=== PATIENT | female | born 1960 | race Caucasian/White ===

== ENCOUNTER → 2017-05-09 15:55 | Outpatient (CLI) | payer MEDICAID ==
[2015-06-29 12:20] VITALS: BMI 44.3
[~2017-05-09 15:55] MED LIST: ALIGN4 MG PO; BAYER CHEWABLE81 MG PO; COLACE100 MG PO; COUMADIN5 MG PO; FISH OIL 1,0001 CA1; FLEXERIL10 MG PO; FLUTICASONE PRO16 GM NASAL; GLUCOPHAGE500 MG PO; NEXIUM40 MG PO; PEPCID20 MG PO; PERCOCET 10/3251 TA1 PO; PHENERGAN25 MG RC; PRINZIDE 20/12.1 TAB PO; PROTONIX20 MG PO; XANAX0.5 MG PO; ZOFRAN ODT4 MG/UDTAB PO
== END | disposition home or self-care (01) ==
LOC: D.MAMMO 13:00
DX: Z12.31 Encounter for screening mammogram for malignant neoplasm of breast (principal)

== ENCOUNTER 2017-06-24 08:41 | Emergency (ER) | payer MEDICAID ==
[2015-06-29 12:20] VITALS: BMI 44.3
[2017-06-24 09:30] LABS: BASOPHILS 0.5 % (0-2); EOSINOPHILS 2.3 % (0-7); HEMATOCRIT 39.5 % (36.0-48.0); HEMOGLOBIN 13.2 g/dL (12-16); IMMATURE GRANULOCYTES 0.2 % (0-5); LYMPHOCYTES 17.8 % (15-50); MCH 29.6 pg (26.0-34.0); MCHC 33.4 g/dL (31.0-37.0); MCV 88.6 fL (80.0-100.0); MEAN PLATELET VOLUME 10.3 fL (7.4-10.4); MONOCYTES 10.6 % (2-11); NEUTROPHILS 68.6 % (40-80); PLATELET COUNT 228 10x3/uL (130-400); RBC 4.46 10x6/uL (4.00-5.40); WBC 6.6 10x3/uL (4.8-10.8)
== END 2017-06-24 09:53 | disposition home or self-care (01) ==
LOC: D.ER 08:41
PROVIDERS: Family Medicine
DX: J20.9 Acute bronchitis, unspecified (principal); N93.9 Abnormal uterine and vaginal bleeding, unspecified; E11.9 Type 2 diabetes mellitus without complications

== ENCOUNTER 2018-05-28 15:06 | Observation (INO) | payer MEDICAID ==
[~2018-05-28] VITALS: Ht 160 cm; Wt 115.9 kg
[2018-05-28 16:10] LABS: BASOPHILS 0.4 % (0-2); EOSINOPHILS 1.2 % (0-7); HEMATOCRIT 41.4 % (36.0-48.0); HEMOGLOBIN 13.7 g/dL (12-16); IMMATURE GRANULOCYTES 0.3 % (0-5); LYMPHOCYTES 13.5 % (15-50); MCHC 33.1 g/dL (31.0-37.0); MCV 87.5 fL (80.0-100.0); MEAN PLATELET VOLUME 10.6 fL (7.4-10.4); MONOCYTES 9.9 % (2-11); NEUTROPHILS 74.7 % (40-80); RBC 4.73 10x6/uL (4.00-5.40); RDW 14.3 % (11.5-14.5); WBC 9.3 10x3/uL (4.8-10.8)
[2018-05-28 16:48] LABS: PLATELET COUNT 149 10x3/uL (130-400)
[2018-05-28 16:58] LABS: ALBUMIN 3.6 g/dL (3.4-5.0); ALKALINE PHOSPHATASE 63 U/L (46-116); ALT (SGPT) 31 U/L (10-68); BILIRUBIN - TOTAL 0.16 mg/dL (0.2-1.3); CALC OSMOLALITY 280 mosm/kg (275-300); CALCIUM 8.7 mg/dL (8.5-10.1); CARBON DIOXIDE 30.5 mmol/L (21.0-32.0); CHLORIDE - SERUM 104 mmol/L (98-107); CREATININE - SERUM 0.8 mg/dL (0.6-1.3); GLUCOSE 150 mg/dL (74-106); POTASSIUM - SERUM 3.9 mmol/L (3.5-5.1); PROTEIN - SERUM 7.1 g/dL (6.4-8.2); SODIUM 140 mmol/L (136-145); UREA NITROGEN 11 mg/dL (7-18); eGFR NON AFRICAN AMERICAN 78 mL/min (90-120)
[2018-05-28 17:04] LABS: APPEARANCE CLEAR (CLEAR); BILIRUBIN NEGATIVE (NEGATIVE); COLOR YELLOW (YELLOW); GLUCOSE NEGATIVE (NEGATIVE); KETONE NEGATIVE (NEGATIVE); NITRITE NEGATIVE (NEGATIVE); PROTEIN NEGATIVE (NEGATIVE); UROBILINOGEN NORMAL (NORMAL)
[2018-05-28 17:09] LABS: CKMB 0.5 U/L (0.0-3.6); CREATINE KINASE 68 UL (21-215); TROPONIN-I < 0.017 ng/mL (0.000-0.060)
[2018-05-28 19:00] VITALS: BP 145/92
--- NOTE | 2018-05-28 19:26 | NUR ---
PT TAKEN TO MRI
[2018-05-28] MEDS ORDERED: KLONOPIN0.5 MG PO (23:40)
[2018-05-28] MEDS ORDERED: PERCOCET 5-3251 TAB PO (23:41)
[2018-05-29] VITALS (7 sets, daily range): BP systolic 107–148; BP diastolic 50–83; Ht 160 cm; Wt 115.9 kg
--- NOTE | 2018-05-29 05:07 | NUR ---
PATIENT RESTING COMFORTABLY IN BED. RESPIRATIONS ARE EVEN AND UNLABORED. NO S/S OF DISTRESS. NO C/O PAIN. CALL LIGHT WITHIN REACH. DENIES NEEDS AT THIS TIME. WILL CPOC.
--- NOTE | 2018-05-29 06:06 | NUR ---
PATIENT REFUSED HER AM INSULIN. PATIENT STATED SHE HAD NEVER HAD IT BEFORE. SHE WOULD LIKE HER METFORMIN.
[2018-05-29 07:27] LABS: BASOPHILS 0.3 % (0-2); EOSINOPHILS 0.7 % (0-7); HEMATOCRIT 40.7 % (36.0-48.0); HEMOGLOBIN 13.4 g/dL (12-16); IMMATURE GRANULOCYTES 0.1 % (0-5); LYMPHOCYTES 19.8 % (15-50); MCH 28.8 pg (26.0-34.0); MCHC 32.9 g/dL (31.0-37.0); MCV 87.5 fL (80.0-100.0); MEAN PLATELET VOLUME 10.5 fL (7.4-10.4); MONOCYTES 9.3 % (2-11); NEUTROPHILS 69.8 % (40-80); RBC 4.65 10x6/uL (4.00-5.40); RDW 14.3 % (11.5-14.5); WBC 9.2 10x3/uL (4.8-10.8)
[2018-05-29 07:31] LABS: CALC OSMOLALITY 275 mosm/kg (275-300); CALCIUM 8.9 mg/dL (8.5-10.1); CARBON DIOXIDE 29.2 mmol/L (21.0-32.0); CHLORIDE - SERUM 100 mmol/L (98-107); CREATININE - SERUM 0.8 mg/dL (0.6-1.3); GLUCOSE 161 mg/dL (74-106); POTASSIUM - SERUM 3.4 mmol/L (3.5-5.1); SODIUM 137 mmol/L (136-145); TROPONIN-I < 0.017 ng/mL (0.000-0.060); UREA NITROGEN 10 mg/dL (7-18); eGFR NON AFRICAN AMERICAN 78 mL/min (90-120)
[2018-05-29 07:40] LABS: PLATELET COUNT 251 10x3/uL (130-400)
--- NOTE | 2018-05-29 07:45 | NUR ---
PT SITTING IN RECLINER. ALERT AND ORIENTED. ROOM AIR. FLUSHED RIGHT AC 20G IV WITH 10CC OF NS AND SL IV. PT HAS NO FURTHER NEEDS AT THIS TIME. BED LOW. CL IN REACH.
--- NOTE | 2018-05-29 07:54 | NUR ---
GREG DE LA CRUZ GAVE ME V.O TO DC MORPHINE.
[2018-05-29] MEDS ORDERED: AMOXICILLIN500 M1 PO ×2 (07:58→13:52)
[2018-05-29] MEDS ORDERED: OMEPRAZOLE20 M1 PO (08:00)
[2018-05-29] MEDS ORDERED: CLARITHROMYCIN500 M1 PO ×4 (08:00→13:57)
--- NOTE | 2018-05-29 11:02 | NUR ---
I have reviewed this patient and I concur with the Shift Assessment completed by the Licensed Practical Nurse today this shift.
--- NOTE | 2018-05-29 13:59 | NUR ---
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 SHE STATES TO RESUME MEDS.
[2018-05-29 16:27] LABS: UDS - AMPHET NEGATIVE QUAL (NEGATIVE); UDS - BARB NEGATIVE QUAL (NEGATIVE); UDS - BENZO NEGATIVE QUAL (NEGATIVE); UDS - COCAINE NEGATIVE QUAL (NEGATIVE); UDS - OPIATE NEGATIVE QUAL (NEGATIVE); UDS - PCP NEGATIVE QUAL (NEGATIVE); UDS - THC NEGATIVE QUAL (NEGATIVE)
--- NOTE | 2018-05-29 18:43 | NUR ---
CALLED MED SURG AND THEY STATED THERE BLADDER SCANNER IS LOCKED UP.
--- NOTE | 2018-05-29 20:02 | NUR ---
PT LAYING IN BED ON RIGHT SIDE. VISITOR AT BEDSIDE. PT AND VISITOR ASKING ABOUT DOCTOR. TOLD THEM DOCTORS NAME. TOLD PT ONCE MED SURG DONE WITH BLADDER SCANNER WILL BLADDER SCAN PT. PT VERBALIZED UNDERSTANDING DENIES ANY QUESTIONS OR CONCERNS. NAME AND DATE PLACED ON BOARD. BEDLOW AND CALL LIGHT IN REACH. WILL CPOC
--- NOTE | 2018-05-29 22:41 | NUR ---
PT FSBS IS 172, PT REFUSES INSULIN COVERAGE. STATES SHE DOESNT TAKE INSULIN. PT BEDLOW AND CALL LIGHT IN REACH. WILL CPOC
--- NOTE | 2018-05-29 22:47 | NUR ---
BLADDER SCAN COMPLETE. PT BLADDER SCAN SHOWED 15ML BLADDER NON DISTENDED. NO S/S OF DISTRESS. PT WILL CALL FOR ASSIST WHEN NEEDED. WILL CPCO
--- NOTE | 2018-05-30 01:52 | NUR ---
PT ASLEEP. RESP EVEN AND UNLABORED. NO S/S OF DISTRESS. BEDLOW AND CALL LIGHT IN REACH. WILL CPOC
[2018-05-30 03:55] VITALS: BP 123/71
--- NOTE | 2018-05-30 07:10 | NUR ---
REPORT RECIEVED FROM IMPREGNATION OPERATOR. PATIENT LAYING IN BED ON BACK AWAKE, ALERT AND ORIENTED X4. PATIENT IS STABLE AND VSS. PATIENT DENIES ANY PAIN OR NEEDS. WILL CONTINUE WITH PLAN OF CARE. SR UP X 2 BED IN LOW POSITION AND CALL LIGHT IN REACH.
--- NOTE | 2018-05-30 07:18 | NUR ---
PT FSBS IS 142 NO INSULIN NEEDED.
[2018-05-30 10:13] LABS: BASOPHILS 0.8 % (0-2); EOSINOPHILS 1.5 % (0-7); HEMATOCRIT 36.7 % (36.0-48.0); HEMOGLOBIN 12.1 g/dL (12-16); IMMATURE GRANULOCYTES 0.5 % (0-5); LYMPHOCYTES 20.9 % (15-50); MCH 28.4 pg (26.0-34.0); MCV 86.2 fL (80.0-100.0); MONOCYTES 9.9 % (2-11); NEUTROPHILS 66.4 % (40-80); PLATELET COUNT 224 10x3/uL (130-400); RBC 4.26 10x6/uL (4.00-5.40); RDW 14.5 % (11.5-14.5)
[2018-05-30 10:23] VITALS: BP 107/62
[2018-05-30 10:30] LABS: ANION GAP 13.3 mmol/L (8-16); CALCIUM 8.5 mg/dL (8.5-10.1); CARBON DIOXIDE 27.6 mmol/L (21.0-32.0); CHOL - HDL RATIO 3.1 ratio (2.3-4.1); CREATININE - SERUM 0.9 mg/dL (0.6-1.3); LDL-HDL RATIO 1.9 ratio (1.5-3.5); POTASSIUM - SERUM 3.9 mmol/L (3.5-5.1); WBC 6.5 10x3/uL (4.8-10.8)
[2018-05-30] MEDS ORDERED: LISINOPRIL10 MG PO (11:54)
--- NOTE | 2018-05-30 14:00 | NUR ---
ORDERS RECIEVED FOR DC. PATIENT IS STABLE AND DENIES ANY NEES OR PAIN. VSS. DISCHARGE INSTRUCTIONS GIVEN VERBALLY AND WRITTEN. PATIENT VERBALIZED UNDERSTANDING AND SIGNED WRITTEN PAPERWORK. IV DC WITHOUT DIFFICULTY.
[2018-05-30 14:36] VITALS: BP 127/61
--- NOTE | 2018-05-31 08:42 | MORECARE ---
CASE MANAGEMENT DISCHARGE SUMMARY PATIENT: LATOYA SARKAR UNIT: [id number] ADM DATE: 05/28/18 AGE: 58 : 62 SEX: F ROOM/BED: D.1556 AUTHOR: MICHAEL BACON PHYSICIAN: REFERRING PHYSICIAN: CARROLL TERRELL MD DATE OF SERVICE: 05/31/18 Discharge Plan Patient Name: LAT[facility]AR [facility] [facility] 1960 Planned Disposition: Home Anticipated Discharge Date: 05/30/18 Discharge Date: 05/30/2018 Expected LOS: 2 Initial Reviewer: [id number] Initial Review Date: 05/31/2018 Generated: 05/31/18 9:42 am Patient Name: LATOYA SARKAR Page [id number] at 0842 All edits/amendments must be made on the electronic document DICTATION DATE: 05/31/18840 SUPERINTENDENT SEED MILL: DANNA 05/31/18840 RPT#: [id number] DC DATE:05/30/18 STATUS: DIS IN [facility] [address] [place] [address] END OF REPORT
== END 2018-05-30 14:45 | disposition home or self-care (01) ==
LOC: D.ER 15:06 → D.M2 18:19 → D.EDHOLD 18:19 → D.M2 20:51 → OBSVTIME 05-29 12:00 → D.M2 05-30 14:45
PROVIDERS: Family Medicine; ADMIT Internal Medicine Nephrology; ATTEND Internal Medicine Nephrology
DX: I16.9 Hypertensive crisis, unspecified (principal); E11.9 Type 2 diabetes mellitus without complications; E87.6 Hypokalemia; F41.0 Panic disorder [episodic paroxysmal anxiety]

== ENCOUNTER → 2019-10-25 14:34 | Outpatient (CLI) | payer MEDICAID ==
[2018-05-29 13:48] VITALS: BMI 45.5
[2019-10-23 08:46] LABS: BASOPHILS 0.2 % (0-2); EOSINOPHILS 1.7 % (0-7); HEMATOCRIT 46.8 % (36.0-48.0); LYMPHOCYTES 23.5 % (15-50); MCH 28.8 pg (26.0-34.0); MCHC 32.1 g/dL (31.0-37.0); MEAN PLATELET VOLUME 10.1 fL (7.4-10.4); MONOCYTES 6.8 % (2-11); NEUTROPHILS 67.8 % (40-80); PLATELET COUNT 218 10x3/uL (130-400); RDW 13.3 % (11.5-14.5); WBC 5.9 10x3/uL (4.8-10.8)
[2019-10-24 06:10] LABS: IMMUNOGLOBULIN G 1405 mg/dL (586-1602)
[~2019-10-25 14:34] MED LIST changes: +AMOXICILLIN500 M1 PO; +CLARITHROMYCIN500 M1 PO; +KLONOPIN0.5 MG PO; +LISINOPRIL10 MG PO; +OMEPRAZOLE20 M1 PO; +PERCOCET 5-3251 TAB PO
[2019-10-27 13:08] LABS: FUNGAL - ASP FLAVUS Negative (Neg:<1:1); FUNGAL - ASP NIGER Negative (Neg:<1:1); FUNGAL - ASPER FUMIGATUS Negative (Neg:<1:1)
[2019-10-28 15:11] LABS: IGG SUBCLASS 1 958 mg/dL (248-810); IGG SUBCLASS 2 404 mg/dL (130-555); IGG SUBCLASS 3 129 mg/dL (15-102); IGG SUBCLASS 4 15 mg/dL (2-96); IGGS - IGG SERUM 1321 mg/dL (586-1602)
[2019-10-28 18:13] LABS: IMMUNOGLOBULIN E 14 IU/mL (6-495)
== END | disposition home or self-care (01) ==
LOC: D.RT 10-23 09:00
PROVIDERS: ATTEND Internal Medicine Pulmonary Disease
DX: J42 Unspecified chronic bronchitis (principal); J32.9 Chronic sinusitis, unspecified; J45.909 Unspecified asthma, uncomplicated; Z11.59 Encounter for screening for other viral diseases

== ENCOUNTER → 2020-06-15 10:05 | Outpatient (CLI) | payer MEDICAID ==
[2018-05-29 13:48] VITALS: BMI 45.5
== END | disposition home or self-care (01) ==
LOC: D.CT 10:05
PROVIDERS: ATTEND Internal Medicine Pulmonary Disease
DX: R91.8 Other nonspecific abnormal finding of lung field (principal)

== ENCOUNTER → 2020-08-26 | Emergency (ER) | payer MEDICAID ==
[~2020-08-26] VITALS: Ht 160 cm; Wt 192.8 kg
[2020-08-26 14:08] VITALS: BP 145/88; Ht 160 cm; Wt 192.8 kg
[2020-08-26 15:51] LABS: BASOPHILS 0.8 % (0-2); EOSINOPHILS 2.5 % (0-7); HEMATOCRIT 39.7 % (36.0-48.0); LYMPHOCYTES 20.5 % (15-50); MCH 28.4 pg (26.0-34.0); MCHC 32.8 g/dL (31.0-37.0); MCV 86.4 fL (80.0-100.0); MEAN PLATELET VOLUME 8.1 fL (7.4-10.4); MONOCYTES 9.2 % (2-11); RDW 13.9 % (11.5-14.5); WBC 7.1 10x3/uL (4.8-10.8)
[2020-08-26 15:52] LABS: PLATELET COUNT 263 10x3/uL (130-400)
[2020-08-26 16:02] LABS: APTT 25.1 SECONDS (22.8-39.4); INR 1.04 (0.85-1.17); PROTIME 12.6 SECONDS (11.6-15.0)
[2020-08-26 16:03] LABS: CALC OSMOLALITY 278 mosm/kg (275-300); CARBON DIOXIDE 32.5 mmol/L (21.0-32.0); CHLORIDE - SERUM 102 mmol/L (98-107); CREATININE - SERUM 0.9 mg/dL (0.6-1.3); GLUCOSE 142 mg/dL (74-106); POTASSIUM - SERUM 4.1 mmol/L (3.5-5.1); SODIUM 138 mmol/L (136-145); UREA NITROGEN 16 mg/dL (7-18); eGFR NON AFRICAN AMERICAN 68 mL/min (90-120)
[2020-08-26 16:21] LABS: ALBUMIN 3.8 g/dL (3.4-5.0); ALKALINE PHOSPHATASE 67 U/L (30-120); ALT (SGPT) 29 U/L (10-68); BILIRUBIN - TOTAL 0.25 mg/dL (0.2-1.3); CKMB 0.1 U/L (0.0-3.6); CREATINE KINASE 59 UL (21-215); PRO BNP 47 pg/mL (0-125); TROPONIN-I < 0.017 ng/mL (0.000-0.060)
== END | disposition home or self-care (01) ==
LOC: D.ER 13:59
PROVIDERS: Family Medicine
DX: R06.02 Shortness of breath (principal); M79.602 Pain in left arm